=== PATIENT | female | born 1990 | race Caucasian/White ===

== ENCOUNTER 2017-04-26 01:09 | Observation (INO) | payer OTHER | END 2017-04-26 03:45 | disposition home or self-care (01) | LOC: FLD 01:09 | PROVIDERS: ADMIT Obstetrics & Gynecology; ATTEND Obstetrics & Gynecology | DX: Z34.83 Encounter for supervision of other normal pregnancy, third trimester (principal); Z3A.39 39 weeks gestation of pregnancy | CPT/HCPCS: 59025; G0378 ==

== ENCOUNTER 2017-04-27 04:29 | Observation (INO) | payer OTHER ==
[2017-04-27] MEDS ORDERED: PHENYLEPHRINE HCL 100 MCG/ML SYR ONE (13:55)
[2017-04-27] MEDS ORDERED: BUPIVACAINE 0.25% 30 ML SDV ONE (13:55)
[2017-04-27] MEDS ORDERED: fentaNYL 2MCG/ML/BUP 0.1% RTU 100 ML BAG EP ONE (13:56)
== END 2017-04-27 06:45 | disposition home or self-care (01) ==
LOC: FLD 04:29
PROVIDERS: ADMIT Advanced Practice Midwife; ATTEND Advanced Practice Midwife
DX: Z03.79 Encounter for other suspected maternal and fetal conditions ruled out (principal)
CPT/HCPCS: J2370

== ENCOUNTER 2017-04-27 11:00 | Inpatient (IN) | payer OTHER ==
[2017-04-27] MEDS ORDERED: TERBUTALINE SULFATE 1 MG/ML VIAL IV PRN (13:12)
[2017-04-27] MEDS ORDERED: LR 1,000 ML IV PRN (13:12)
[2017-04-27] MEDS ORDERED: OXYTOCIN/RINGERS LACTATE 1,000 ML IV PRN (13:12)
[2017-04-27] MEDS ORDERED: EPSOM SALT 454 GM TP PRN (13:12)
[2017-04-27] MEDS ORDERED: OLIVE OIL 118 ML BTL MISC PRN (13:12)
[2017-04-27] MEDS ORDERED: OXYTOCIN 20 UNIT in LR 1,000 ML IV SCH (13:30)
[2017-04-27] MEDS ORDERED: AMMONIA AROMATIC 1 EACH AMP IH ONE (13:32)
[2017-04-27] MEDS ORDERED: LIDOCAINE 1% 300 MG/30 ML SDV ONE (13:32)
[2017-04-27] MEDS ORDERED: OLIVE OIL 118 ML BTL ONE (13:32)
[2017-04-27] MEDS ORDERED: OXYTOCIN 10 UNIT/ML VIAL ONE (13:33)
[2017-04-27] MEDS ORDERED: TERBUTALINE SULFATE 1 MG/ML VIAL ONE (13:33)
[2017-04-27] MEDS ORDERED: MISOPROSTOL 200 MCG TAB ONE (13:33)
[2017-04-27 13:48] LABS: % IMMATURE GRANULYOCYTES 0.6 % (0.0-1.1); ABSOLUTE IMMATURE GRANULOCYTES 0.06 10^3/uL (0.00-0.10); ADD DIFF? NO; ADD MORPH? NO; ADD SCAN? NO; ATYPICAL LYMPHOCYTE FLAG 0 (0-99); FRAGMENT RBC FLAG 0 (0-99); HEMATOCRIT 38.1 % (38.0-47.0); HEMOGLOBIN 13.5 g/dL (12.6-16.3); LEFT SHIFT FLG 10 (0-99); LIPEMIA HEMOLYSIS FLAG 90 (0-99); MEAN CELL HEMOGLOBIN 33.8 pg (27.9-34.1); MEAN CELL HEMOGLOBIN CONCENTR. 35.4 g/dL (32.4-36.7); MEAN CELL VOLUME 95.5 fL (81.5-99.8); PLATELET CLUMPS FLAG 10 (0-99); PLATELET COUNT 174 10^3/uL (150-400); RED BLOOD CELL COUNT 3.99 10^6/uL (4.18-5.33); RED CELL DISTRIBUTION WIDTH 13.2 % (11.5-15.2)
[2017-04-27] MEDS ORDERED: NALOXONE HCL 0.4 MG/ML INJ IVP PRN (14:29)
[2017-04-27] MEDS ORDERED: ONDANSETRON 4 MG/2 ML VIAL IVP PRN (14:29)
[2017-04-27] MEDS ORDERED: PHENYLEPHRINE HCL 100 MCG/ML SYR IVP PRN (14:29)
--- NOTE | 2017-04-27 14:29 | PDANEPAE ---
ANE History of Present Illness NEEMA ANE Past Medical History Past Medical History: Kaley benitez - Pulmonary History Hx Sleep Apnea: No - Chronic Pain History Chronic Pain: No ANE Review of Systems Review of systems is: negative Review of Systems: - Exercise capacity Exercise capacity: >=4 METS ANE Patient History - Allergies Allergies/Adverse Reactions: No Known Allergies Allergy (Verified 05/23/12 00:01) - Home Medications Home Medications: Md Eli 05/23/12 [Last Taken Unknown] Trientine HCl [Syprine] 500 mg PO BID 05/23/12 [Last Taken Unknown] - Smoking Hx Smoking Status: Never smoked ANE Labs/Vital Signs - Labs Result Diagrams: 04/27/17 13:15 - Vital Signs Height: 167.64 cm Weight: 83.461 kg ANE Physical Exam - Airway Neck exam: FROM Mallampati Score: Class 1 Mouth exam: normal dental/mouth exam - Pulmonary Pulmonary: no respiratory distress - Cardiovascular Cardiovascular: regular rate and rhythym - ASA Status ASA Status: II ANE Anesthesia Plan Anesthesia Plan: epidural
[2017-04-27] MEDS ORDERED: LR 500 ML IV SCH (14:30)
[2017-04-27] MEDS ORDERED: fentaNYL 2MCG/ML/BUP 0.1% RTU 100 ML EP SCH (14:30)
--- NOTE | 2017-04-27 16:35 | OBPROG ---
Labor Progress Note Assessment/Plan: Assessment: IUP at 39w5d SOOC NEEMA now, had SROM 13:58 clear Plan: expect 04/27/17 16:30 Subjective/Intrapartum Course: 04/27/17 16:32 Pt doing fine, currently comfortable with NEEMA, when pt was last examined at 13: 37, she was 6/90/0 but was checked due to rectal pressure. 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
--- NOTE | 2017-04-27 18:03 | OBPROG ---
Labor Progress Note Assessment/Plan: Assessment: Plan: Subjective/Intrapartum Course: 04/27/17 16:32 Pt doing fine, currently comfortable with NEEMA, when pt was last examined at 13: 37, she was 6/90/0 but was checked due to rectal pressure. Since then, had SROM at 13:58 04/27/17 18:02 patient comfortable with epidural. SVE - AROM of forebag. will augment as needed. status is reassuring. 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
[2017-04-27] MEDS ORDERED: LR 500 ML IV PRN (19:06)
--- NOTE | 2017-04-27 19:07 | OBPROG ---
Labor Progress Note Assessment/Plan: Assessment: Plan: Subjective/Intrapartum Course: 04/27/17 16:32 Pt doing fine, currently comfortable with NEEMA, when pt was last examined at 13: 37, she was 6/90/0 but was checked due to rectal pressure. Since then, had SROM at 13:58 04/27/17 18:02 patient comfortable with epidural. SVE - AROM of forebag. will augment as needed. status is reassuring. 04/27/17 19:06 patient comfortable. minimal change in cervix. iupc placed. will start pitocin. 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
[2017-04-27] MEDS ORDERED: OXYTOCIN/RINGERS LACTATE 500 ML IV SCH (19:30)
[2017-04-27] MEDS ORDERED: OXYTOCIN 30 UNIT in LR 500 ML IV SCH (19:30)
--- NOTE | 2017-04-27 21:30 | OBDEL ---
Info Type: Vaginal Presentation at Delivery: Vertex L&D Analgesia/Anesthesia Type: Epidural GBS+: No Intrapartum Medications: Generic Name Dose Route Start Last Admin Trade Name Freq PRN Reason Stop Dose Admin Lactated Ringer's 1,000 mls @ 0 mls/hr 04/27/17 13:12 04/27/17 19:39 Lr IV 10/24/17 13:11 1,000 mls PRN PRN Administration SEE PROTOCOL CONDITIONS Protocol Per Protocol Oxytocin 30 unit/ Lactated 503 mls @ 0 mls/hr 04/27/17 19:30 04/27/17 19:37 Ringer's IV 10/24/17 19:29 503 mls CONT JOE Administration Protocol Per Protocol - Hospital Course Intrapartum: arrived to labor and delivery after membranes swept. contractions significantly increased. 04/27/17 16:32 Pt doing fine, currently comfortable with NEEMA, when pt was last examined at 13: 37, she was 6/90/0 but was checked due to rectal pressure. Since then, had SROM at 13:58 04/27/17 18:02 patient comfortable with epidural. SVE - AROM of forebag. will augment as needed. status is reassuring. 04/27/17 19:06 patient comfortable. minimal change in cervix. iupc placed. will start pitocin. 04/27/17 21:35 Indications for Delivery: Spontaneous Labor Vaginal Delivery - Delivery Provider Delivery Physician/CNM: Dodie Valencia - Labor and Delivery Onset of Contractions Date: 04/26/17 Onset of Contractions Time: 23:00 Onset of Contractions Type: Augmented Rupture of Membranes Date: 04/27/17 Rupture of Membranes Time: 17:50 Rupture of Membranes Type: Artificial Amniotic Fluid Color: Clear Dilation Complete Date: 04/27/17 Dilation Complete Time: 20:49 Placenta Delivery Date: 04/27/17 Placenta Delivery Time: 21:10 Total Hours of Labor: 22 Non-surgical Procedures: Amniotomy, IUPC Vaginal Sponge Count Correct: Yes Vaginal Needle Count Correct: Yes Vaginal Sweep Performed: No EBL: 200 Delivery Events: None - Medications Labor Augmentation/Induction Methods Used: Pitocin Labor Augmentation/Induction Indication: Contraction Strength Inadequate Data Smith Delivery Date: 04/27/17 Delivery Time: 21:10 LEO: 04/29/17 Gestational Age: 39 week(s) and 5 day(s) Sex of : Male Score (1 Min): 8 Score (5 Min): 9 ICD10 Worksheet Patient Problems: Problems Problem Status Onset Normal labor 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
[2017-04-27] MEDS ORDERED: HYDROCORTISONE 0.5% CREAM TP PRN (21:40)
[2017-04-27] MEDS ORDERED: HYDROCODONE/APAP 5/325 TAB PO PRN (21:40)
[2017-04-27] MEDS ORDERED: SIMETHICONE 80 MG TAB CHEW PO PRN (21:40)
[2017-04-27] MEDS ORDERED: ACETAMINOPHEN 325 MG TAB PO PRN (21:40)
[2017-04-27] MEDS: IBUPROFEN 600 MG TAB PO PRN (21:43)
--- NOTE | 2017-04-27 22:49 | OBPROG ---
Labor Progress Note Assessment/Plan: Assessment: Plan: Subjective/Intrapartum Course: arrived to labor and delivery after membranes swept. contractions significantly increased. 04/27/17 16:32 Pt doing fine, currently comfortable with NEEMA, when pt was last examined at 13: 37, she was 6/90/0 but was checked due to rectal pressure. Since then, had SROM at 13:58 04/27/17 18:02 patient comfortable with epidural. SVE - AROM of forebag. will augment as needed. status is reassuring. 04/27/17 19:06 patient comfortable. minimal change in cervix. iupc placed. will start pitocin. 04/27/17 21:35 Objective: 04/27/17 13:15 Patient ABO/Rh O POSITIVE 04/27/17 13:15 - SVE Membranes: AROM, SROM Amniotic Fluid Color: Clear Dilation Complete Date: 04/27/17 Dilation Complete Time: 20:49 - Contraction Pattern Assessment Current Contraction Pattern: Regular (q 5 min) - Procedures Non-surgical Procedures: Amniotomy, IUPC - AP Antepartum Course: 04/27/17 22:47 patient has wilsons disease and hemachromatosis. is rubella non immune. placenta previa resolved. patient has had prodromal labor x 2 days. was 3 cm this am and discharged to home. arrived in our office for evaluation. was 4 cm. contractions still spaced. membranes stripped. progressed to active labor. arrived to labor and delivery and requested an epidural. 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
--- NOTE | 2017-04-27 23:33 | GHP ---
[f rep st] PREOP HISTORY AND PHYSICAL DATE OF ADMISSION: 04/27/2017 ADMISSION DIAGNOSIS: Intrauterine at 39-5/7 weeks' gestation in active labor. Patient is a 26-year-old 3, para 1-0-1-1, who is 39-5/7 weeks' gestation. She came into labo r and delivery for evaluation on Sunday night and was found to be 1 cm dilated, and was not found to be in labor and was discharged to home. She came in overnight on 04/26 and was found to changed t o 3 cm dilated, but did not make further progress. She was then evaluated in the office several hour s later, and she was 4 cm dilated, but contractions had still spaced. Membranes were stripped and lexi rolanda was offered expectant management versus augmentation versus morphine sleep. By the time she ar rived to Labor and delivery she was in active labor and requested and did receive an epidural. The p atient ultimately went on and had a spontaneous vaginal delivery without complications over an intact perineum. PAST MEDICAL HISTORY: Significant for Garrett's disease and hemochromatosis and irregular menstrual p eriods. MEDICATIONS: vitamins and iron. Patient is also on Syprine, multivitamin, and fish oil. PAST SURGICAL HISTORY: None. ALLERGIES: No known drug allergies. SOCIAL HISTORY: Patient is a teacher. She denies tobacco, alcohol, or drug use. She lives with her fiance and their other child. FAMILY HISTORY: Noncontributory. CEMENTER HELPER HISTORY: Menarche age 13. Periods are irregular, lasting 4 days. She is a 3, para 1 -0-1-1. In 05/2012, she had a spontaneous vaginal delivery of a 7 pound 11 ounce female at 38 weeks' gestation. The patient did not have any care with the . In 03/2014, she h ad a spontaneous which did not require a d and C. Current has been uncomplicated. The patient denies any history of any abnormal Pap smears or sexually transmitted diseases. REVIEW OF SYSTEMS: 10-point Review of Systems was negative. There was positive movement. The re was no loss of fluid. No vaginal bleeding. She denied any headaches or changes in vision. PHYSICAL EXAMINATION: VITAL SIGNS: Stable. GENERAL APPEARANCE: Alert and oriented x3. PSYCH: Sh e has appropriate affect. Neck: Mobile and supple. HEART: Rate is regularly irregular. LUNGS: C lear to auscultation bilaterally. ABDOMEN: Gravid, nondistended, nontender. EXTREMITIES: Reveal n o calf tenderness or edema. PELVIC: is in the vertex presentation. She is 4 cm dilated, 100 % effaced, and -1 station on arrival and heart tracing is category 1. The patient's labs: Blood type O positive. Antibody screen negative. GBS negative. Rubel la nonimmune. GBS negative. HBsAg negative. HIV negative. Her 50 g glucose was 107. ASSESSMENT AND PLAN: 26-year-old 3, para 1-0-1-1, who was 39-5/7 weeks' gestation who presen pito in active labor and ultimately had a spontaneous vaginal delivery. /[id number]/MODL
[2017-04-28] MEDS: IBUPROFEN 600 MG TAB PO PRN ×4 (03:45→22:46)
[2017-04-28] MEDS: DOCUSATE SODIUM 100 MG CAP PO PRN ×2 (10:20→22:46)
[2017-04-28] MEDS ORDERED: MEASLES,MUMPS&RUBELLA VACC/PF 0.5 ML VIAL SC ONE (11:52)
[2017-04-28 19:51] VITALS: RESP 20; O2SAT 95
[2017-04-29] MEDS: IBUPROFEN 600 MG TAB PO PRN ×2 (04:18→11:15)
[2017-04-29] MEDS ORDERED: MEASLES,MUMPS&RUBELLA VACC/PF 0.5 ML VIAL SC ONE (08:30)
[2017-04-29 09:32] VITALS: BP 100/64; PULSE 61; TEMP 98.5
--- NOTE | 2017-04-29 10:22 | OBPP ---
Progress Note Assessment/Plan: Assessment: p2 ppd# 2 s/p breast feeding rubella non immune - mmr given Plan: routine post care discharge instructions 04/29/17 10:19 Subjective/ Course: 04/29/17 10:20 patient is doing great! pain is well controlled. normal lochia. denies headache and changes in vision. ambulating. passing gas. breast feeding is going well. voiding without difficulty. Objective: 04/27/17 13:15 Patient ABO/Rh O POSITIVE 04/27/17 13:15 Temp Pulse Resp BP Pulse Ox 36.9 C 61 20 100/64 95 04/29/17 08:00 04/29/17 08:00 04/28/17 19:50 04/29/17 08:00 04/28/17 19:50 Physical Exam - Physical Exam Neck: non-tender, full range of motion, supple Respiratory: chest non-tender, lungs clear, normal breath sounds Cardiac/Chest: normal peripheral pulses, regular rate, rhythm Abdomen: normal bowel sounds, non-tender, other (fundus firm and non tender) Extremities: normal range of motion, non-tender, normal inspection, normal capillary refill Skin: normal color, warm/dry Neuro/Psych: no motor/sensory deficits, alert, normal mood/affect, oriented x 3
--- NOTE | 2017-04-29 10:24 | OBGCSDC ---
General Delivery Information - General Info : 3 Para: 2 Abortions: 1 Type: Vaginal L&D Analgesia/Anesthesia Type: Epidural Admission Date: 04/27/17 Labs: Patient ABO/Rh O POSITIVE 04/27/17 13:15 Hct 38.1 % (38.0-47.0) 04/27/17 13:15 - Hospital Course Antepartum: 04/27/17 22:47 patient has wilsons disease and hemachromatosis. is rubella non immune. placenta previa resolved. patient has had prodromal labor x 2 days. was 3 cm this am and discharged to home. arrived in our office for evaluation. was 4 cm. contractions still spaced. membranes stripped. progressed to active labor. arrived to labor and delivery and requested an epidural. Intrapartum: arrived to labor and delivery after membranes swept. contractions significantly increased. 04/27/17 16:32 Pt doing fine, currently comfortable with NEEMA, when pt was last examined at 13: 37, she was 6/90/0 but was checked due to rectal pressure. Since then, had SROM at 13:58 04/27/17 18:02 patient comfortable with epidural. SVE - AROM of forebag. will augment as needed. status is reassuring. 04/27/17 19:06 patient comfortable. minimal change in cervix. iupc placed. will start pitocin. 04/27/17 21:35 : 04/29/17 10:20 patient is doing great! pain is well controlled. normal lochia. denies headache and changes in vision. ambulating. passing gas. breast feeding is going well. voiding without difficulty. Vaginal - Delivery Provider Delivery Physician/CNM: Dodie Valencia - Diagnosis Labor: Augmented Rupture of Membranes Type: Artificial Amniotic Fluid Color: Clear Delivery Events: None - Procedures Non-surgical Procedures: Amniotomy, IUPC - Delivery Non-surgical Procedures: Amniotomy, IUPC [place] Data [place] Delivery Date: 04/27/17 Delivery Time: 21:10 LEO: 04/29/17 Gestational Age: 40 week(s) and 0 day(s) Sex of : Male [place] Weight (gm): 0 g Score (1 Min): 8 Score (5 Min): 8 Discharge Information - Discharge Information Condition: Good Instruction/Follow Up: Four Weeks, Six Weeks
[2017-04-29] MEDS: DOCUSATE SODIUM 100 MG CAP PO PRN (11:15)
== END 2017-04-29 13:30 | disposition home or self-care (01) | DRG 775 ==
LOC: FLD 11:00 → FOB 23:30
PROVIDERS: ADMIT Obstetrics & Gynecology; ATTEND Obstetrics & Gynecology
PROC: 10E0XZZ Delivery of Products of Conception, External Approach (ICD-10-PCS; principal; 2017-04-27)
PROC: 10907ZC Drainage of Amniotic Fluid, Therapeutic from Products of Conception, Via Natural or Artificial Opening (ICD-10-PCS; principal; 2017-04-27)
DX: O80 Encounter for full-term uncomplicated delivery (principal); Z37.0 Single live birth; Z3A.39 39 weeks gestation of pregnancy
CPT/HCPCS: J3105

== ENCOUNTER → 2017-05-07 | Outpatient (CLI) | payer OTHER | LOC: FLACT 10:45 | PROVIDERS: ATTEND Obstetrics & Gynecology | DX: O92.13 Cracked nipple associated with lactation (principal) | CPT/HCPCS: G0463 ==